=== PATIENT | male | born 1985 | race Caucasian/White ===

== ENCOUNTER 2024-11-15 01:38 | Emergency (ER) | payer SELFPAY ==
[2024-11-15 01:40] VITALS: BP 129/83; PULSE 84; TEMP 36.4; O2SAT 94; BMI 26.6
[2024-11-15 06:01] LABS: Basophils Percent Auto 0.4 % (0.2-2.0); Eosinophils Absolute Auto 0.2 10^3/uL (0.0-0.7); Eosinophils Percent Auto 2.2 % (0.9-7.0); Hematocrit 42.5 % (42.0-54.0); Hemoglobin 14.5 g/dL (14.0-18.0); Immature Granulocytes Abs Auto 0.01 10^3/uL (0.00-0.03); Immature Granulocytes Pct Auto 0.1 % (0.0-0.5); Lymphocytes Absolute Auto 1.9 10^3/uL (1.2-3.8); Lymphocytes Percent Auto 23.2 % (20.5-60.0); Mean Corpuscular HGB Conc 34.1 g/dL (29.9-35.2); Mean Corpuscular Hemoglobin 32.6 pg (25.9-34.0); Mean Corpuscular Volume 95.5 fL (80.0-94.0); Mean Platelet Volume 10.1 fL (9.5-13.5); Monocytes Absolute Auto 0.7 10^3/uL (0.3-0.8); Monocytes Percent Auto 7.9 % (1.7-12.0); Neutrophils Absolute Auto 5.5 10^3/uL (1.4-6.5); Neutrophils Percent Auto 66.2 % (43.0-75.0); Platelet Count 236 10^3/uL (150-450); Red Blood Count 4.45 10^6/uL (4.70-6.10); Red Cell Distribution Width 12.5 % (11.0-15.0); White Blood Count 8.3 10^3/uL (4.0-11.0)
[2024-11-15 06:03] LABS: Alanine Aminotransferase 87 U/L (16-63); Albumin Globulin Ratio 1.1; Albumin Level 3.5 g/dL (3.4-5.0); Alkaline Phosphatase 93 U/L (46-116); Anion Gap 13.2; Aspartate Amino Transferase 32 U/L (15-37); BUN Creatinine Ratio 23.6; Bilirubin Total 0.3 mg/dL (0.2-1.0); Calcium 8.7 mg/dL (8.5-10.1); Carbon Dioxide 27.7 mmol/L (21.0-32.0); Chloride 107 mmol/L (98-107); Estimated GFR (African America >60 (>=60 mL/min/1.73m^2); Estimated GFR (Non-African Ame >60 (>=60 mL/min/1.73m^2); Globulin 3.2 g/dL; Glucose 149 mg/dL (74-106); Potassium 3.9 mmol/L (3.5-5.1); Sodium 144 mmol/L (136-145); Total Protein 6.7 g/dL (6.4-8.2)
[2024-11-15 06:23] LABS: Bilirubin Urine NEGATIVE (NEGATIVE); Blood Urine LARGE (NEGATIVE); Clarity Urine SLIGHTLY CLOUDY (CLEAR); Color Urine YELLOW (YELLOW); Glucose Urine UA NEGATIVE (NEGATIVE); Ketones Urine TRACE mg/dL (NEGATIVE); Leukocyte Esterase Urine NEGATIVE (NEGATIVE); Nitrite Urine NEGATIVE (NEGATIVE); Protein Urine NEGATIVE (NEG/TRACE); Specific Gravity Urine >=1.030 (1.005-1.025); Urobilinogen Urine 0.2 EU/dL (0.2-1.0)
[2024-11-15 06:38] LABS: RBC Urine >100 #/HPF (0-2); WBC Urine 0-2 #/HPF (NONE SEEN)
[2024-11-15 06:39] LABS: Bacteria Urine NONE SEEN #/HPF (NONE SEEN); Cast Seen? SEEN #/LPF (NONE SEEN); Crystals Seen? None Seen #/HPF (None Seen); Hyaline Casts Urine FEW; Mucus Urine LARGE (NONE SEEN); Squamous Epithelial Cell Urine NONE SEEN #/LPF (NONE/RARE)
== END 2024-11-15 05:15 | disposition home or self-care (01) ==
LOC: ER 01:43
PROVIDERS: Emergency Provider Emergency Medicine
DX: K80.50 Calculus of bile duct without cholangitis or cholecystitis without obstruction (principal); R10.13 Epigastric pain; K29.70 Gastritis, unspecified, without bleeding
CPT/HCPCS: 36415; 80053; 81001; 83690; 85025; 96374; 96375; 99284

== ENCOUNTER 2025-05-17 13:41 | Emergency (ER) | payer SELFPAY ==
--- OUTSIDE RECORDS SUMMARY | 2025-05-17 13:47 | XMS_ITS | CCD ---
Author Organization [facility] Care Team Providers Care Animal Behaviorist Name Role Phone REQUEST, DR NONE LISTED Primary Care UnavailMARIUSZ Vicente Admitting Unavailable YVONNE MARKS Consulting Unavailable MARIUSZ CARRASQUILLO Attending Unavailable MARIUSZ CARRASQUILLO Consulting Unavailable LUZ MARIA, DR TREVINO Attending Unavailable LUZ MARIA, DR TREVINO Consulting Unavailable LUZ MARIA, DR TREVINO Admitting Unavailable REQUEST, DR MORRIS LISTED Primary Care Donna GROVES, DR JOCELYN Ortiz Consulting Unavailable Nadia Loera MD Primary Care Provider [phone] NADIA LOERA Attending Unavailable Allergies Allergy Classification Reported Allergen(s) Allergy Type Date of Onset Reaction(s) Facility (2 sources) Loratadine Allergy to substance 11-24-2024 [facility] Medications Current Medications Medication Drug Class(es) Dates Sig (Normalized) Sig (Original) omeprazole 40 mg delayed release oral capsule (4 sources) Proton Pump Inhibitor Start: 06-04-2023 End: 11-24-2024 take 1 capsule by mouth once daily omeprazole (PriLOSEC) [address] capsule Indications: Gastroesophageal reflux disease, unspecified whether esophagitis present Take 1 capsule (40 mg) by mouth Daily 100 capsule 11/24/2024 Active Problems Active Problems Problem Classification Problem Date Documented Date Episodic/Chronic Biliary tract disease (4 sources) Calculus of bile duct without cholangitis or cholecystitis without obstruction; Translations: [CALC BD NO CHOLANG/CHOLCYST NO OBST] Onset: 12-05-2022 Episodic Esophageal disorders (6 sources) Gastroesophageal reflux disease; Translations: [Gastro-esophageal reflux disease without esophagitis] Onset: 11-24-2024 11-24-2024 Chronic Substance-related disorders (2 sources) Smoker; Translations: [Nicotine dependence, unspecified, uncomplicated] Onset: 11-24-2024 11-24-2024 Chronic Past or Other Problems Problem Classification Problem Date Documented Da te Episodic/Chronic Immunizations and screening for infectious disease (1 source) Encounter for immunization; Translations: [ENCOUNTER FOR IMMUNIZATION] Onset: 04-18-2022 Episodic Inflammation; infection of eye (except that caused by tuberculosis or sexually transmitteddisease) (1 source) Unspecified conjunctivitis; Translations: [UNSPECIFIED CONJUNCTIVITIS] Onset: 04-18-2022 Episodic Other injuries and conditions due to external causes (3 sources) Foreign body on external eye, part unspecified, right eye, initial encounter; Translations: [FB EXT EYE PART UNS RT EYE INIT ENC] Onset: 04-16-2022 Episodic Results Test Name Value Interpretation Reference Range Facil ity Provider Letteron 12-05-2024 Provider Letter Provider Letter December 05, 2024 BALTAZAR VALLE [address] [place] [id number] : 1985 Dear Baltazar, We have been trying to reach you with no success. It is important that you return our call regarding your referral from Dr. Loera to see Dr. Starkey. Please call the office to schedule a appointment upon receiving this letter. Also, at the time of your call, please provide us with your current information. Thank you for your prompt attention to this matter. Sincerely, [facility] [phone] Normal [facility] NM HEPATOBILIARY SCAN W EFon 12-05-2022 NM HEPATOBILIARY SCAN W EF EXAMINATION: NM HEPATOBILIARY SCAN W EF HISTORY: Biliary colic ; right upper quadrant pain for 3 months increasing in severity, nausea and vomiting COMPARISON: No relevant comparison available. TECHNIQUE: Radionuclide hepatobiliary imaging was performed after intravenous injection of 5.1 mCi Tc-99m PENNY derivative with sequential acquisitions every 1 minute for one hour. Hepatobiliary imaging with gallbladder ejection fraction analysis was then performed with sequential imaging every 1 minute for 60 minutes following ingestion of 8 oz. Ensure Plus. FINDINGS: LIVER: Normal, prompt and uniform radiotracer uptake and clearing. BILIARY DUCTS: Normal radioisotopic biliary excretion. GALLBLADDER: Normal with no evidence of cystic duct obstruction. INTESTINE: Normal with no evidence of common biliary ductal obstruction. EJECTION FRACTION: 97 % within 60 minutes. (Normal EF > 38%). OTHER: Negative. IMPRESSION: 1. Normal nuclear medicine HIDA scan. Electronically authenticated by: JOCELYN Greenberg: 2022-12-05 09:34 Normal [facility] XR FOREIGN BODY EYEon 2021 XR FOREIGN BODY EYE EXAM: XR FOREIGN BODY EYE HISTORY: Foreign body right eye pain COMPARISON: None. TECHNIQUE: AP and lateral radiographs of the orbits. FINDINGS: No radiopaque foreign body identified in the region of the orbits. No fracture. Leftward nasal septal deviation. The pneumatized portions of the skull appear clear IMPRESSION: No radiopaque foreign body identified. Electronically authenticated by: KANU DONAHUE Date: 2022-04-16 12:39 Normal [facility] Vital Signs Date Time Vital Sign Value Performing Clinician Faci lity 11-24-2024 13:49-0500 Body height 175.3 cm Nadia Loera MD Work Phone: [facility] 11-24-2024 13:49-0500 Body mass index (BMI) [Ratio] 27.76 kg/m2 Nadia Loera MD Work Phone: [facility] 11-24-2024 13:49-0500 Body weight 85.28 kg Nadia Loera MD Work Phone: [facility] 11-24-2024 13:49-0500 Diastolic blood pressure 80 mm[Hg] Nadia Loera MD Work Phone: [facility] 11-24-2024 13:49-0500 Heart rate 81 /min Nadia Loera MD Work Phone: [facility] 11-24-2024 13:49-0500 SaO2% (BldA) [Mass fraction] 98 % aNdia Loera MD Work Phone: [facility] 11-24-2024 13:49-0500 Systolic blood pressure 122 mm[Hg] Nadia Loera MD Work Phone: [facility] Encounters Encounter Date Encounter Type Care Provider Facility Start: 11-27-2024 ambulatory Facility: [facility] Start: 11-24-2024 End: 11-24-2024 ambulatory NADIA LOERA Not Available Start: 11-24-2024 End: 11-24-2024 Office outpatient visit 25 minutes Nadia Loera MD Work Phone: [facility] Comment on above: Gastroesophageal ref lux disease, unspecified whether esophagitis present Start: 12-05-2022 End: 12-06-[address] NAIDA LOERA Facility: Start: 04-16-2022 End: 04-16-2022 ambulatory NONE LISTED REQUEST Facility: Plan of Treatment Date Care Activity Detail Author Start: 07-06-2024 Influenza vaccination Influenza Vacc ine (#1) [facility] Immunizations Immunization Date Immunization Notes Care Provider Fa cility 04-16-2022 diphtheria, tetanus toxoids and pertussis vaccine Nadia Loera MD Work Phone: [facility] 03-02-2000 measles, mumps and rubella virus vaccine Nadia Loera MD Work Phone: [facility] 06-20-1991 diphtheria, tetanus toxoids and pertussis vaccine Ndaia Loera MD Work Phone: [facility] 06-20-1991 haemophilus influenz ae type b vaccine, conjugate unspecified formulation Nadia Loera MD Work Phone: [facility] 06-20-1991 trivalent poliovirus vaccine, live, oral Nadia Loera MD Work Phone: [facility] 08-21-1988 measles, mumps and rubella virus vaccine Nadia Loera MD Work Phone: [facility] 01-04-1987 diphtheria, tetanus toxoids and pertussis vaccine Nadia Loera MD Work Phone: [facility] 01-04-1987 trivalent poliovirus vaccine, live, oral Nadia Loera MD Work Phone: [facility] 1985 diphtheria, tetanus toxoids and pertussis vaccine Nadia Loera MD Work Phone: [facility] 1985 trivalent poliovirus vaccine, live, oral Nadia Loera MD Work Phone: [facility] 1985 diphtheria, tetanus toxoids and pertussis vaccine Nadia Loera MD Work Phone: [facility] 1985 trivalent poliovirus vaccine, live, oral Nadia Loera MD Work Phone: [facility] Payers Date Payer Category Payer Unknown [id number] 1985 Unknown [id number] 1985 Unknown [id number] 1958 Unknown [id number] Self-pay Social History Date Type Detail Facility Start: 11-24-2024 Tobacco smoking stat [facility] Never smoked tobacco [facility] Start: 11-24-2024 Tobacco use and exposure Smokeless t obacco non-user [facility] Start: 11-24-2024 History of Social function [facility] Start: 11-24-2024 Tobacco use panel [facility] Start: 1985 Sex assigned at Not on file [facility] History of Present illness Narrative 11-24-2024 Nadia Loera MD - 11/24/2024 2:00 PM David Loera MD - 11/24/2024 1:30 PM EST Note Date & Type Note Facility 11-24-2024 History of Presen t illness Narrative Associated Problem(s): Gastroesophageal reflux disease Was taking Ibuprofen 4 a day. Discontinue NSAIDs: Motrin, Ibuprofen, Naprosyn Extra Strength 2 every 6 hours Omeprazole could take twice a day GI specialist Images from the original note were not included. HPI Nephrolithiasis Additional comments: Pt has not been seen since November of 2022 Last edited by Melissa Saravia MA on 11/24/2024 7:37 AM. Subjective Patient ID: Baltazar Valle is a 39 y.o. male who presents for Nephrolithiasis (Pt has not been seen since November of 2022). Pt was in [place] two weeks ago pt went to ER due to having front and back pain , ultrasound and a CT they told him his kidney stone front hurt due to his kidney being swollen , pt was given pain meds Pt states if he drinks water he gets heartburn and also if he eats anything it will hurt also , and has had to go up three pants sizes Pt has had heartburn for the past two to three years , Was in [place]. Has had some pain in Rib cage. Can eat anything has pain RUQ. No Radiation. Diarrhea all the time HIDA scan was normal Current Outpatient Medications on File Prior to Visit Medication Sig Dispense Refill [DISCONTINUED] omeprazole (PriLOSEC) [address] capsule Take 1 capsule (40 mg) by mouth in the morning. 100 capsule 0 No current facility-administered medications on file prior to visit. I have reviewed and reconciled the history and medication list with the patient today. Allergies Allergen Reactions Loratadine Other Reaction(s): unknown Social History Tobacco Use Smoking status: Never Smokeless tobacco: Never Family History Problem Relation Name Age of Onset Hypertension Mother Past Medical History: Diagnosis Date History of abdominal hernia Past Surgical History: Procedure Laterality Date APPENDECTOMY HERNIA REPAIR Visit Vitals BP 122/80 Pulse 81 Ht 5' 9 Wt 188 lb SpO2 98% BMI 27.76 kg/m Smoking Status Never BSA 2.04 m Review of Systems Gastrointestinal: Positive for abdominal pain and diarrhea. Negative for blood in stool and constipation. Objective Physical Exam Vitals reviewed. Constitutional: Appearance: Normal appearance. HENT: Head: Normocephalic. Cardiovascular: Rate and Rhythm: Normal rate and regular rhythm. Pulses: Normal pulses. Pulmonary: Effort: Pulmonary effort is normal. Breath sounds: Normal breath sounds. Abdominal: Tenderness: There is abdominal tenderness. Neurological: General: No focal deficit present. Mental Status: He is alert and oriented to person, place, and time. Psychiatric: Mood and Affect: Mood normal. Assessment/Plan Problem List Items Addressed This Visit Gastroesophageal reflux disease Was taking Ibuprofen 4 a day. Discontinue NSAIDs: Motrin, Ibuprofen, Naprosyn Extra Strength 2 every 6 hours Omeprazole could take twice a day GI specialist Relevant Medications omeprazole (PriLOSEC) [address] capsule Other Relevant Orders Ambulatory referral to Gastroenterology No follow-ups on file. documented in this encounter [facility] Evaluation note Note Date & Type Note Facility Evaluation note Diagnosis Gastroesophageal reflux disease, unspecified whether esophagitis present documented in this encounter [facility] Summary Purpose Family History No Family History Records FoundNo Family History Records FoundNo Family History Records Found Advance Directives No Advanced Directives Records FoundNo Advanced Directives Records FoundNo Advanced Directives Records Found Additional Source Comments (unrecognized sect ion and content) No Status Records FoundNo Status Records FoundNo Status Records Found INFORMATION SOURCE (unrecogn ized section and content) DATE CREATED AUTHOR 12/06/2022 [facility] DATE CREATED AUTHOR AUTHOR'S ORGANIZ ATION 11/26/2024 [facility] EPIC DATE CREATED AUTHOR AUTHOR'S ORGANIZ ATION 12/07/2024 [facility] Reason for Visit (unrecogniz ed section and content) Reason Comments Nephrolithiasis Pt has not been seen since November of 2022 Care Teams (unrecognized sec tion and content) Animal Behaviorist Relationship Specialty Start Date End Date Nadia Loera MD [address] [facility] [address] [place] [address] PCP - General Family Medicine 03/13/23 FOR RECORDS PERTAINING TO PATIENTS WHO ARE OR HAVE BEEN ENROLLED IN A CHEMICAL DEPENDENCY/SUBSTANCEABUSE PROGRAM, SOME INFORMATION MAY BE OMITTED. This clinical summary was aggregated from multiple sources. Caution should be exercised in using it in the provision of clinical care. This summary normalizes information from multiple sources, and as a consequence, information in this document may materially change the coding, format and clinical context of patient data. In addition, data may be omitted in some cases. CLINICAL DECISIONS SHOULD BE BASED ON THE PRIMARY CLINICAL RECORDS. [facility]. provides no warranty or guarantee of the accuracy or completeness of information in this document.
[2025-05-17 13:52] VITALS: BP 126/88; PULSE 99; TEMP 36.8; O2SAT 95; BMI 22.2
--- NOTE | 2025-05-17 14:11 | CT_ITS ---
[place] [id number] Patient Name: MARGIE MAZARIEGOS MRN: [id number] date: 1985 Sex: M Assigned Patient Location: ER Current Patient Location: ER Accession/Order Number: [id number] Exam Date: 05/17/2025 15:00 Report Date: 05/17/2025 15:03 At the request of: MARIELA SOLORIO NP Procedure: CT abdomen pelvis wo con CT abdomen pelvis wo con 05/17/2025 2:45 PM SIGNS AND SYMPTOMS: ^L flank/ ab pain, hx stones TECHNIQUE: Multidetector ct axial images of the abdomen and pelvis were obtained without IV contrast. Multiplanar reformats were performed and reviewed to further define anatomy and possible pathology. CT was performed with one or more of the following dose reduction techniques: Automated exposure control, adjustment of the mA and/or kV according to patient size, or use of iterative reconstruction technique. COMPARISON: None. FINDINGS: Lower Chest: Within normal limits. ABDOMEN: Liver: Within normal limits. Bile Ducts: Normal caliber. Gallbladder: No calcified gallstones. Normal caliber wall. Pancreas: Within normal limits. Spleen: Within normal limits. Adrenals: Within normal limits. Kidneys: There is mild left-sided hydronephrosis. There is a 4 mm stone in the left renal collecting system. Pelvis: Reproductive Organs: No pelvic masses. Ureters: There is a 4 mm stone in the mid left ureter. Bladder: Within normal limits. Bowel: Normal caliber. There is a normal appendix in the right lower quad. Mesenteric Lymph Nodes: No enlarged mesenteric lymph nodes. Peritoneum: No ascites or free air, no fluid collection. Vessels: within normal limits Retroperitoneum: Within normal limits. Abdominal Wall: Within normal limits. Bones: Within normal limits. CT/CT abdomen pelvis wo con IMPRESSION: There is a 4 mm stone in the mid left ureter. There is mild left-sided hydronephrosis. There is a 4 mm stone in the left renal collecting system. Impression dictated by: Baltazar Colbert M.D. 05/17/2025 3:03 PM Dictation Location: [place] [address] Electronically authenticated by: [id number] Y Date: 05/17/2025 15:03
[2025-05-17] MEDS: KETOROLAC TROMETHAMINE 30 MG/ML VIAL IVP (14:26)
[2025-05-17] MEDS: 0.9 % SODIUM CHLORIDE 1,000 ML 1000 ML IV (14:26)
--- NOTE | 2025-05-17 14:42 | ED_ITS ---
HPI HPI - General Adult General Chief complaint: Abdominal Pain Stated complaint: SHARP PAINS L SIDE BACK Time Seen by Provider: 05/17/25 14:06 Source: patient Mode of arrival: walk-in History of Present Illness HPI narrative: Patient is a 39-year-old male who presents to the emergency department today for evaluation of concerns for left-sided flank and abdominal pain. He endorses he woke up this morning with colicky like pain that is becoming more persistent with associated symptoms of nausea without vomiting. He states he has a history of kidney stones from 2 to 3 months ago but never followed up with urology for this. He denies any fevers. No urinary symptoms. He mentions he took some Toradol with no improvement for Sullivan this morning. Related Data Previous Rx's ?Medication ?Instructions ?Recorded cephalexin 500 mg capsule 500 mg PO BID 14 days #28 ca ps 05/17/25 hydrocodone 5 mg-acetaminophen 325 1 tab PO Q6H PRN pa in #7 tabs 05/17/25 mg tablet ondansetron 4 mg disintegrating 4 mg PO Q8H PRN nausea and 05/17/25 tablet vomiting 4 days #10 tabs tamsulosin 0.4 mg capsule (Flomax) 0.4 mg PO DAILY #14 caps 05/17/25 Allergies Allergy/AdvReac Type Severity Reaction Status Date / Time No Known Drug Allergies Allergy Verified 11/15/24 01:47 Opioid HPI Opioid Management Most Recent Opioid Data: Last Pain Scale 4 Today, 15:41 Review of Systems ROS Status of ROS 10 or more systems reviewed and unremark able except as noted in history and below PFSH PFSH Social History Little interest or pleasure in doing things: not at all Feeling down, depressed, or hopeless: not at all Exam Narrative Exam Narrative: Constituational: Awake/ alert, no apparent distress, well hydrated HENMT: normocephalic, external ears normal, moist oral mucous membranes and oropharynx normal Eyes: EOMI and conjunctivae normal Neck: ROM intact Chest: inspection of chest normal Respiratory: Normal respiratory effort, clear to auscultation bilaterally Cardio: regular rate and regular rhythm GI: + Mild discomfort to LLQ/LUQ without rebound, abdomen is otherwise soft to palpation and non-tender Back:+ Mild L left CVA discomfort, otherwise normal inspection of back MSK: ROM intact, +NVI Skin: no rashes or petechiae Neuro: no focal deficits Psych: mental status grossly normal Constitutional Vital Signs, click to edit/add: Last Vital Signs Temp 98.2 F 05/17/25 13:52 Pulse 99 H 05/17/25 13:52 Resp 18 05/17/25 13:52 BP 126/88 05/17/25 13:52 Pulse Ox 95 05/17/25 13:52 O2 Del Method Room Air 05/17/25 13:52 Course Vital Signs Vital signs: Vital Signs Temperature 98.2 F 05/17/25 13:52 Pulse Rate 99 H 05/17/25 13:52 Respiratory Rate 18 05/17/25 13:52 Blood Pressure 126/88 05/17/25 13:52 Pulse Oximetry 95 05/17/25 13:52 Oxygen Delivery Method Room Air 05/17/25 13:52 Temperature 98.2 F 05/17/25 13:52 Pulse Rate 99 H 05/17/25 13:52 Respiratory Rate 18 05/17/25 13:52 Blood Pressure 126/88 05/17/25 13:52 Pulse Oximetry 95 05/17/25 13:52 Oxygen Delivery Method Room Air 05/17/25 13:52 Medical Decision Making MDM Narrative Medical decision making narrative: The patient is a nontoxic and well-appearing 39-year-old male who presented to the emergency department today for evaluation concerns for colicky left flank and abdominal pain. Initial examination vital signs overall stable. No acute abdominal findings on exam. There is elevated concern for kidney stone and subsequent CT imaging obtained that is noted for 4mm stone in both mid ureter and collecting system. Labs otherwise stable as below. UA is positive for UTI as evidenced by nitrites, leukocytes, and bacteria and occult blood. Roland duarte received supportive measures of IV fluids, Zofran, Toradol, and subsequently morphine. On reevaluation he reports an improvement in condition. Discussed the above findings with the patient including recommendations for supportive care of UTI and kidney stones. Will discharge home with [place] for severe pain. In addition to Zofran for any nausea or vomiting, tamsulosin, and cephalexin for UTI. Placed for urology for follow-up. Discussed signs and symptoms of any worsening condition and when to consider reevaluation by the emergency department. Patient verbalized an understanding of this and is agreeable with the plan to be discharged home. Medical Records Medical records reviewed: Yes I reviewed the patient's medical records Lab Data Lab results reviewed: Yes I reviewed the patient's lab results Labs: Lab Results 05/17/25 05/17/25 Range/Units 14:00 14:22 WBC 9.0 (4.0-11.0) 10^3/uL RBC 4.80 (4.70-6.10) 10^6/uL Hgb 15.7 (14.0-18.0) g/dL Hct 44.4 (42.0-54.0) % MCV 92.5 (80.0-94.0) fL MCH 32.7 (25.9-34.0) pg MCHC 35.4 H (29.9-35.2) g/dL RDW 12.5 (11.0-15.0) % Plt Count 210 (150-450) 10^3/uL MPV 10.2 (9.5-13.5) fL Neut % (Auto) 69.4 (43.0-75.0) % Lymph % (Auto) 20.4 L (20.5-60.0) % Phelps % (Auto) 8.9 (1.7-12.0) % Eos % (Auto) 0.8 L (0.9-7.0) % Baso % (Auto) 0.2 (0.2-2.0) % Neut # (Auto) 6.2 (1.4-6.5) 10^3/uL Lymph # (Auto) 1.8 (1.2-3.8) 10^3/uL Phelps # (Auto) 0.8 (0.3-0.8) 10^3/uL Eos # (Auto) 0.1 (0.0-0.7) 10^3/uL Baso # (Auto) 0.0 (0.0-0.1) 10^3/uL Abs Immat Gran (auto) 0.03 (0.00-0.03) 10^3/uL Imm/Tot Granulo (auto) 0.3 (0.0-0.5) % Sodium 142 (136-145) mmol/L Potassium 4.4 (3.5-5.1) mmol/L Chloride 106 (98-107) mmol/L Carbon Dioxide 21.4 (21.0-32.0) mmol/L Anion Gap 19.0 BUN 26.0 H (7.0-18.0) mg/dL Creatinine 1.15 (0.70-1.30) mg/dL Est GFR ( Amer) >60 (>=60 mL/min/1.73m^2) Est GFR (Non-Af Amer) >60 (>=60 mL/min/1.73m^2) BUN/Creatinine Ratio 22.6 Glucose 104 (74-106) mg/dL Calcium 9.1 (8.5-10.1) mg/dL Total Bilirubin 0.5 (0.2-1.0) mg/dL AST 27 (15-37) U/L ALT 47 (16-63) U/L Alkaline Phosphatase 105 (46-116) U/L Total Protein 7.0 (6.4-8.2) g/dL Albumin 3.8 (3.4-5.0) g/dL Globulin 3.2 g/dL Albumin/Globulin Ratio 1.2 Lipase 31.0 (16.0-77.0) U/L Urine Color Dk. brown (YELLOW) Urine Clarity Clear (CLEAR) Urine pH 5.5 (5.0-9.0) Ur Specific Hinton 1.025 (1.005-1.025) Urine Protein >=300 A (NEG/TRACE) mg/dL Urine Glucose (UA) Negative (NEGATIVE) mg/dL Urine Ketones Trace A (NEGATIVE) mg/dL Urine Occult Blood Large A (NEGATIVE) Urine Nitrite Positive A (NEGATIVE) Urine Bilirubin Small A (NEGATIVE) Urine Urobilinogen 1.0 (0.2-1.0) EU/dL Ur Leukocyte Esterase Trace A (NEGATIVE) Imaging Data CT scan - abdomen: Attestation: I have reviewed the pertinent imaging results. Radiologist's impression: ITS Impressions Abdomen/Pelvis CT 05/17/25 14:11 IMPRESSION: There is a 4 mm stone in the mid left ureter. There is mild left-sided hydronephrosis. There is a 4 mm stone in the left renal collecting system. Impression dictated by: Baltazar Colbert M.D. 05/17/2025 3:03 PM Dictation Location: [place] [address] Electronically authenticated by: [id number] Y Date: 05/17/2025 15:03 Discharge Plan Discharge Chief Complaint: Abdominal Pain Clinical Impression: Calculus of kidney, Acute UTI Patient Disposition: Home, Self-Care Prescriptions / Home Meds: New hydrocodone-acetaminophen 5-325 mg tablet 1 tab PO Q6H PRN (Reason: pain) Qty: 7 0RF tamsulosin [Flomax] 0.4 mg capsule 0.4 mg PO DAILY Qty: 14 0RF cephalexin 500 mg capsule 500 mg PO BID 14 Days Qty: 28 0RF ondansetron 4 mg tablet,disintegrating 4 mg PO Q8H PRN (Reason: nausea and vomiting) 4 Days Qty: 10 0RF Print Language: Greenlandic Instructions: Kidney Stones (ED), Low Oxalate Diet (ED), How to Strain Your Urine (ED) Additional Instructions: Alternate Tylenol and ibuprofen as needed for any pain. May take [place] as needed for severe pain. Take tamsulosin as prescribed -> this will increase frequency of urination to help you pass the stone. Take antibiotics as prescribed for UTI. Stay hydrated and drink plenty of fluids. You need to follow-up with urology for reevaluation of your kidney stones as discussed. May return to the ER with any new or worsening symptoms/concerns. Referrals: Physician,Non-Staff, [Primary Care Provider] - 1 week Phil Pineda MD [Physician, Urology] - 1 week
[2025-05-17 14:52] LABS: Hematocrit 44.4 % (42.0-54.0); Hemoglobin 15.7 g/dL (14.0-18.0); Immature Granulocytes Abs Auto 0.03 10^3/uL (0.00-0.03); Immature Granulocytes Pct Auto 0.3 % (0.0-0.5); Lymphocytes Absolute Auto 1.8 10^3/uL (1.2-3.8); Mean Corpuscular HGB Conc 35.4 g/dL (29.9-35.2); Mean Corpuscular Hemoglobin 32.7 pg (25.9-34.0); Mean Corpuscular Volume 92.5 fL (80.0-94.0); Platelet Count 210 10^3/uL (150-450); Red Blood Count 4.80 10^6/uL (4.70-6.10); White Blood Count 9.0 10^3/uL (4.0-11.0)
[2025-05-17 15:08] LABS: Alanine Aminotransferase 47 U/L (16-63); Albumin Globulin Ratio 1.2; Albumin Level 3.8 g/dL (3.4-5.0); Alkaline Phosphatase 105 U/L (46-116); Anion Gap 19.0; Aspartate Amino Transferase 27 U/L (15-37); Blood Urea Nitrogen 26.0 mg/dL (7.0-18.0); Calcium 9.1 mg/dL (8.5-10.1); Carbon Dioxide 21.4 mmol/L (21.0-32.0); Chloride 106 mmol/L (98-107); Estimated GFR (African America >60 (>=60 mL/min/1.73m^2); Estimated GFR (Non-African Ame >60 (>=60 mL/min/1.73m^2); Globulin 3.2 g/dL; Glucose 104 mg/dL (74-106); Lipase 31.0 U/L (16.0-77.0); Potassium 4.4 mmol/L (3.5-5.1); Sodium 142 mmol/L (136-145); Total Protein 7.0 g/dL (6.4-8.2)
[2025-05-17] MEDS: MORPHINE SULFATE 2 MG/ML SYRINGE IV (15:41)
[2025-05-17 15:53] LABS: Glucose Urine UA NEGATIVE (NEGATIVE)
[2025-05-17 16:00] LABS: Cast Seen? NONE SEEN #/LPF (NONE SEEN); Crystals Seen? None Seen #/HPF (None Seen); Urine Culture Indicated YES-FRMC
== END 2025-05-17 16:15 | disposition home or self-care (01) ==
PROVIDERS: Nurse Practitioner; Emergency Provider Emergency Medicine
DX: N13.6 Pyonephrosis (principal); Z87.442 Personal history of urinary calculi
CPT/HCPCS: 36415; 74176; 80053; 81001; 83690; 85025; 87086; 96374; 96375; 99285; J1885; J2270; J2405

== ENCOUNTER 2025-05-23 08:26 | Outpatient (OUT) | payer SELFPAY ==
--- OUTSIDE RECORDS SUMMARY | 2025-05-23 08:30 | XMS_ITS | CCD ---
Author Organization [facility] Care Team Providers Care Ship Cleaner Name Role Phone REQUEST, DR NONE LISTED Primary Care UnavailMARIUSZ Vicente Admitting Unavailable YVONNE MARKS Consulting Unavailable MARIUSZ CARRASQUILLO Attending Unavailable MARIUSZ CARRASQUILLO Consulting Unavailable LUZ MARIA, DR TREVINO Attending Unavailable LUZ MARIA, DR TREVINO Consulting Unavailable LUZ MARIA, DR TREVINO Admitting Unavailable REQUEST, NONE LISTED Primary Care Donna GROVES, DR JOCELYN Ortiz Consulting Unavailable Nadia Loera MD Primary Care Provider NADIA LOERA Attending Unavailable Phil PAYAN Attending Unavailable Allergies Allergy Classification Reported Allergen(s) Allergy Type Date of Onset Reaction(s) Facility (2 sources) Loratadine Allergy to substance 11-24-2024 [facility] Healthcare Medications Current Medications Medication Drug Class(es) [...] [place] [address] [place] [id number] : 1985 Dear Baltazar, We have been [...] your prompt attention to this matter. Sincerely, [facility] [phone] Normal [facility] [place] HEPATOBILIARY SCAN W EFon 12-05-2022 NM [...] medicine HIDA scan. Electronically authenticated by: JOCELYN GROVES Date: 2022-12-05 09:34 Normal [facility] XR FOREIGN BODY EYEon 2021 XR FOREIGN [...] by: KANU DONAHUE Date: 2022-04-16 12:39 Normal [facility] Vital Signs Date Time Vital Sign Value Performing Clinician Faci lity 11-24-2024 13:49-0500 Body height 175.3 cm Nadia Loera MD Work Phone: [facility] 11-24-2024 13:49-0500 Body mass index (BMI) [Ratio] 27.76 kg/m2 Nadia Loera MD Work Phone: [facility] 11-24-2024 13:49-0500 Body weight 85.28 kg Nadia Loera MD Work Phone: [facility] 11-24-2024 13:49-0500 Diastolic blood pressure 80 mm[Hg] Nadia Loera MD Work Phone: [facility] 11-24-2024 13:49-0500 Heart rate 81 /min Nadia Loera MD Work Phone: [facility] 11-24-2024 13:49-0500 SaO2% (BldA) [Mass fraction] 98 % Nadia Loera MD Work Phone: [facility] 11-24-2024 13:49-0500 Systolic blood pressure 122 mm[Hg] Nadia Leora MD Work Phone: [facility] Encounters Encounter Date Encounter Type Care Provider Facility Start: 06-08-2025 ambulatory Phil Shell ty:[facility] Start: 05-19-2025 ambulatory Phil PAYAN Facility :[facility] Start: 11-27-2024 ambulatory Phil PAYAN Facility :[facility] Start: 11-24-2024 End: 11-24-2024 ambulatory NADIA LOERA Not Available Start: 11-24-2024 End: 11-24-2024 Office outpatient visit 25 minutes Nadia Loera MD Work Phone: [facility] Comment on above: Gastroesophageal ref lux disease, unspecified whether esophagitis present Start: 12-05-2022 End: 12-06-[address] NADIA LOERA Facility: Start: 04-16-2022 End: 04-16-2022 ambulatory NONE LISTED REQUEST Facility: Plan of Treatment Date Care Activity Detail Author Start: 07-06-2024 Influenza vaccination Influenza Vacc ine (#1) [facility] Immunizations Immunization Date Immunization Notes Care Provider Fa cili 04-16-2022 diphtheria, tetanus toxoids and pertussis vaccine Nadia Loera MD Work Phone: [facility] 03-02-2000 measles, mumps and rubella virus vaccine Nadia Loera MD Work Phone: [facility] 06-20-1991 diphtheria, tetanus toxoids and pertussis vaccine Nadia Loera MD Work Phone: [facility] 06-20-1991 haemophilus influenz ae type b vaccine, conjugate unspecified formulation Nadia Loera MD Work Phone: [facility] 06-20-1991 trivalent poliovirus vaccine, live, oral Nadia Loera MD Work Phone: [facility] 08-21-1988 measles, mumps and rubella virus vaccine Nadia Loera MD Work Phone: [facility] 01-04-1987 diphtheria, tetanus toxoids and pertussis vaccine Nadia Loera MD Work Phone: [facility] 01-04-1987 trivalent poliovirus vaccine, live, oral Nadia Loera MD Work Phone: [facility] 1985 diphtheria, tetanus toxoids and pertussis vaccine Nadia Loera MD Work Phone: [facility] 1985 trivalent poliovirus vaccine, live, oral Nadia Loera MD Work Phone: [facility] 1985 diphtheria, tetanus toxoids and pertussis vaccine Nadia Loera MD Work Phone: [facility] 1985 trivalent poliovirus vaccine, live, oral Nadia Loera MD Work Phone: [facility] Payers Date Payer Category Payer Unknown [id number] [id number] 1985 Unknown [id number] [id number] 1985 Unknown [id number] [id number] 1985 Unknown [id number] [id number] 1985 Unknown [id number] 1958 Unknown [id number] Self-pay Social History Date Type Detail Facility Start: 11-24-2024 Tobacco smoking stat [facility] Never smoked tobacco [facility] Start: 11-24-2024 Tobacco use and exposure Smokeless t obacco non-user [facility] Start: 11-24-2024 History of Social function [facility] Start: 11-24-2024 Tobacco use panel [facility] Start: 1985 Sex assigned at Not on file [facility] History of Present illness Narrative 11-24-2024 [...] since November of 2022). Pt was in [place] two weeks ago pt went to ER [...] two to three years , Was in [place]. Has had some pain in Rib cage. [...] and content) DATE CREATED AUTHOR 12/06/2022 [facility] DATE CREATED AUTHOR AUTHOR'S ORGANIZ ATION 11/26/2024 [facility] EPIC DATE CREATED AUTHOR AUTHOR'S ORGANIZ ATION 05/23/2025 [facility] Reason for Visit (unrecogniz ed section and content) Reason Comments Nephrolithiasis Pt has not been seen since November of 2022 Care Teams (unrecognized sec tion and content) Ship Cleaner Relationship Specialty Start Date End Date Nadia Loera MD [address] [place] [address] [address] [place] [address] PCP - General Family Medicine 03/13/23 FOR [...] BE BASED ON THE PRIMARY CLINICAL RECORDS. [facility]. provides no warranty or guarantee of the accuracy or completeness of information in this document.
--- NOTE | 2025-05-23 08:35 | US_ITS ---
The [address] [address] Patient Name: MARGIE MAZARIEGOS MRN: [id number] date: 1985 Sex: M Assigned Patient Location: [place] Current Patient Location: [place] Accession/Order Number: [id number] Exam Date: 05/23/2025 09:20 Report Date: 05/23/2025 09:23 At the request of: KRISTY PAYAN MD Procedure: US renal BI BILATERAL RENAL AND BLADDER ULTRASOUND CLINICAL HISTORY: KIDNEY STONE N20.0 COMPARISON: 05/17/2025 Estimation of renal size is approximately 11.3 x 4.5 x 4.0 cm on the right and 10.4 x 5.3 x 5.2 cm on the left. No contour deforming mass, or hydronephrosis. Echogenic foci within the midpole left kidney noted 4 x 4 x 2 mm. The urinary bladder is partially distended with a volume of 749 cc . No shadowing stone or focal lesion. US/US renal BI IMPRESSION: NO OBSTRUCTIVE UROPATHY. 4 MM LEFT INTERPOLAR CALCULUS. Impression dictated by: Andrea Vazquez M.D. 05/23/2025 9:23 AM Dictation Location: [place] [address] Electronically authenticated by: [id number] Y Date: 05/23/2025 09:23
--- NOTE | 2025-05-23 08:35 | XR_ITS ---
The [place] [id number] Patient Name: MARGIE MAZARIEGOS MRN: [id number] date: 1985 Sex: M Assigned Patient Location: US Current Patient Location: US Accession/Order Number: [id number] Exam Date: 05/23/2025 09:24 Report Date: 05/23/2025 09:26 At the request of: KRISTY PAYAN MD Procedure: XR abdomen 1V Single view abdomen INDICATION: Kidney stone COMPARISON: CT abdomen pelvis 05/17/2025 FINDINGS: No radiopaque calculi identified overlying the kidney shadows or psoas muscles. There is bowel gas which projects over the left kidney which does obscure evaluation. Right pelvic phleboliths. Otherwise nonspecific bowel gas pattern. XR/XR abdomen 1V IMPRESSION: No radiopaque calculi identified on this examination. Please see renal ultrasound report.. Impression dictated by: Andrea Vazquez M.D. 05/23/2025 9:26 AM Dictation Location: [place] [address] Electronically authenticated by: [id number] Y Date: 05/23/2025 09:26
== END 2025-05-23 08:27 | disposition home or self-care (01) ==
LOC: US 08:28
PROVIDERS: Visit Provider Urology
DX: N20.0 Calculus of kidney (principal)
CPT/HCPCS: 74018; 76775

== ENCOUNTER 2025-06-10 06:32 | Outpatient (OUT) | payer SELFPAY ==
--- OUTSIDE RECORDS SUMMARY | 2025-06-08 09:37 | XMS_ITS ---
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 A 24-hour urine specimen is a lab test that requires you to collect all of your urine for an entire day. This is sometimes called a timed urine test. It can provide more information than a single urine sample. There are many reasons to have this test. Your health care provider may order the test to check for or monitor the following conditions: ??? High blood pressure. ??? Kidney disease. ??? Kidney stones. ??? Urinary tract infections. ??? . ??? Diabetes. How do I prepare for this test? You may be asked to follow a special diet during or before the collection period. Follow any instructions from your health care provider. If no special instructions are given, you may eat and drink normally. ??? Take qpoz-vby-xpsyemr and prescription medicines only as told by your health care provider. ??? Let your health care provider know about any medicines that you are taking, including retr-fzg-crrarju medicines, vitamins, herbs, and supplements. ??? Choose a collection day when you can be at home or when you have a place to store the urine. All urine must be collected during the testing period. How do I do a 24-hour urine collection? When you get up in the morning, urinate in the toilet and flush. Write down the time. This will be your start time on the day of collection and your end time on the next morning. ??? From the start time on, all of your urine should be kept in the collection jug that you received from the lab. ??? If the jug that is given to you already has liquid in it, that is okay. Do not throw out the liquid or rinse out the jug. ??? Urinate into a specimen container, such as a urinal or gibbs that sits over the toilet. Pour the urine from the container into the collection jug. Be careful not to spill any of the urine. Use the equipment provided by the lab. ??? Do not let any toilet paper or stool (feces) get into the jug. This will contaminate the sample. ??? Stop collecting your urine 24 hours after you started. Collect the last specimen as close as possible to the end of the 24-hour period. ??? Keep the jug cool in an ice chest or keep it in the refrigerator during collection. ??? When the 24-hour collection is complete, take the jug to the lab as soon as possible. Keep the jug cool in an ice chest while you are bringing it to the lab. What do the results mean? Talk with your health care provider about what your results mean. Questions to ask your health care provider Ask your health care provider, or the department that is doing the test: ??? When will my results be ready? How will I get my results? What are my treatment options? What other tests do I need? What are my next steps? Summary ??? A 24-hour urine specimen is a lab test that requires you to collect all of your urine for an entire day. ??? When you get up in the morning, urinate in the toilet and flush. Write down the time. For the next 24 hours, collect all of your urine in the collection jug that you received from the lab. ??? Keep the jug cool while collecting the urine and while bringing it back to the lab. ??? Take the jug of urine back to the lab as soon as possible after the collection period has ended. This information is not intended to replace advice given to you by your health care provider. Make sure you discuss any questions you have with your health care provider. Document Revised: 04/28/2022 Document Reviewed: 04/28/2022 [employer] Patient Education ? 2023 [employer]Kidney Stones Kidney stones are solid, rock-like deposits that form inside of the kidneys. The kidneys are a pair of organs that make urine. A kidney stone may form in a kidney and move into other parts of the urinary tract, including the tubes that connect the kidneys to the bladder (ureters), the bladder, and the tube that carries urine out of the body (urethra). As the stone moves through these areas, it can cause intense pain and block the flow of urine. Kidney stones are created when high levels of certain minerals are found in the urine. The stones are usually passed out of the body through urination, but in some cases, medical treatment may be needed to remove them. What are the causes? Kidney stones may be caused by: ??? A condition in which certain glands produce too much parathyroid hormone (primary hyperparathyroidism), which causes too much calcium buildup in the blood. ??? A buildup of uric acid crystals in the bladder (hyperuricosuria). Uric acid is a chemical that the body produces when you eat certain foods. It usually leaves the body in the urine. ??? Narrowing (stricture) of one or both of the ureters. ??? A kidney blockage that is present at (congenital obstruction). ??? Past surgery on the kidney or the ureters. What increases the risk? The following factors may make you more likely to develop this condition: ??? Having had a kidney stone in the past. ??? Having a family history of kidney stones. ??? Not drinking enough water. ??? Eating a diet that is high in protein, salt (sodium), or sugar. ??? Being overweight or obese. What are the signs or symptoms? Symptoms of a kidney stone may include: ??? Pain in the side of the abdomen, right below the ribs (flank pain). Pain usually spreads (radiates) to the groin. ??? Needing to urinate often or urgently. ??? Painful urination. ??? Blood in the urine (hematuria). ??? Nausea. ??? Vomiting. ??? Fever and chills. How is this diagnosed? This condition may be diagnosed based on: ??? Your symptoms and medical history. ??? A physical exam. ??? Blood tests. ??? Urine tests. These may be done before and after the stone passes out of your body through urination. ??? Imaging tests, such as a CT scan, abdominal X-ray, or ultrasound. ??? A procedure to examine the inside of the bladder (cystoscopy). How is this treated? Treatment for kidney stones depends on the size, location, and makeup of the stones. Kidney stones will often pass out of the body through urination. You may need to: ??? Increase your fluid intake to help pass the stone. In some cases, you may be given fluids through an IV and may need to be monitored in the hospital. ??? Take medicine for pain. ??? Make changes in your diet to help prevent kidney stones from coming back. Sometimes, procedures are needed to remove a kidney stone. This may involve: ??? A procedure to break up kidney stones using: ? A focused beam of light (laser therapy). ? Shock waves (extracorporeal shock wave lithotripsy). ??? Surgery to remove kidney stones. This may be needed if you have severe pain or have stones that block your urinary tract. Follow these instructions at home: Medicines ??? Take mowo-rfx-fizpqxi and prescription medicines only as told by your health care provider. ??? Ask your health care provider if the medicine prescribed to you requires you to avoid driving or using heavy machinery. Eating and drinking ??? Drink enough fluid to keep your urine pale yellow. You may be instructed to drink at least 8?10 glasses of water each day. This will help you pass the kidney stone. ??? If directed, change your diet. This may include: ? Limiting how much sodium you eat. ? Eating more fruits and vegetables. ? Limiting how much animal protein you eat. Animal proteins include red meat, poultry, fish, and eggs. ? Eating a normal amount of calcium (1,000?1,300 mg per day). ??? Follow instructions from your health care provider about eating or drinking restrictions. General instructions ??? Collect urine samples as told by your health care provider. You may need to collect a urine sample: ? 24 hours after you pass the stone. ? 8?12 weeks after you pass the kidney stone, and every 6?12 months after that. ??? Strain your urine every time you urinate, for as long as directed. Use the strainer that your health care provider recommends. ??? Do not throw out the kidney stone after passing it. Keep the stone so it can be tested by your health care provider. Testing the makeup of your kidney stone may help prevent you from getting kidney stones in the future. ??? Keep all follow-up visits. You may need follow-up X-rays or ultrasounds to make sure that your stone has passed. How is this prevented? To prevent another kidney stone: ??? Drink enough fluid to keep your urine pale yellow. This is the best way to prevent kidney stones. ??? Eat a healthy diet. Follow recommendations from your health care provider about foods to avoid. Recommendations vary depending on the type of kidney stone that you have. You may be instructed to eat a low-protein diet. ??? Maintain a healthy weight. Where to find more information ??? National Kidney Foundation (NKF): www.kidney.org ??? [employer] (UCF): www.urologyhealth.org Contact a health care provider if: ??? You have pain that gets worse or does not get better with medicine. Get help right away if: ??? You have a fever or chills. ??? You develop severe pain. ??? You develop new abdominal pain. ??? You faint. ??? You are unable to urinate. Summary ??? Kidney stones are solid, rock-like deposits that form inside of the kidneys. ??? Kidney stones can cause nausea, vomiting, blood in the urine, abdominal pain, and the urge to urinate often. ??? Treatment for kidney stones depends on the size, location, and makeup of the stones. Kidney stones will often pass out of the body through urination. ??? Kidney stones can be prevented by drinking enough fluids, eating a healthy diet, and maintaining a healthy weight. This information is not intended to replace advice given to you by your health care provider. Make sure you discuss any questions you have with your health care provider. Document Revised: 01/31/2023 Document Reviewed: 01/31/2023 Elsevier Patient Education ? 2023 [employer]. UROLOGY OFFICE/CLINIC NOTE Observed: 02/2025 9:37 AM Status: F Source: [facility] Urology Office/Clinic Note Chief Complaint new pt for hospitl follow up from kidney stone HPI Staff 39 yr old here for 3 week f/u [facility] ER w/4mm stone in Ureter. PRW would like ANNAMARIA and KUB done prior to appt. pt denies pain/burning denies visible blood denies flank pain pt unable to give urine sample today Pt states that his kidney stones problems started winter with several trips to the ER. Pt reports that he is unable to pass the stone History of Present Illness Tests reviewed: reviewed ER notes & labs & CT, ANNAMARIA, KUB, UA I have reviewed the previous health record information and history for this patient from external providers. I have reviewed and verified the staff HPI to be accurate for this encounter. Review of Systems PHQ Score Initial Depression Screen Score: 0 SCORE ROS - Provider Constitutional: denies weight loss, denies hot flashes. Eyes: denies eye problems. Gastrointestinal: denies nausea, denies vomiting. Cardiovascular: denies chest pain or angina. Integumentary: no dryness Musculoskeletal: denies musculoskeletal symptoms. ENMT: denies otolaryngeal symptoms. Respiratory: no shortness of breath. Heme/Lymph: denies easy bleeding tendency, denies easy bruising tendency. Psychiatric: no confusion, no anxiety. Genitourinary: See HPI. Physical Exam Vitals & Measurements HR: 68(Peripheral) RR: 18 BP: 128/78 HT: 69 in HT: 174 cm WT: 83.8 kg WT: 184.747 lb BMI: 27.68 General Appearance: alert, no distress, well nourished, well developed male. Assessment/Plan Baltazar is a 39 yo male new pt here for ER f/u due to 4 mm L ureteral stone. Pt accompanied by adult female today. 1. Ureteral stone (N20.1: Calculus of ureter) [facility] ER 05/17/25 due to L flank pain. Renal fxn - BUN 26, Cr 1.15, GFR >60 CT AP wo con - Mild L hydro with 4 mm stone in mid L ureter. ANNAMARIA/KUB 05/23/25 [facility] - No ureteral stones or hydro noted. UA today shows trace-intact blood. Denies noticing stone passage. Reviewed imaging results. May have uric acid stones, urine pH 6.5 and no stones seen on x-ray. Given ureteral stone was not visualized on recent imaging, likely passed stone but there is a small chance he has not. Denies changes in urination. Has experienced sweating despite a cool environment a few times over the last 6-7 mos. Drinking liters of water daily, has increased fluid intaek recently. Used to only void q6-8hrs. Last pain episode 5 days ago. Discussed metabolic workup to help determine the etiology of kidney stone formation, including genetic predisposition, dietary factors, and different metabolism in patients. -Increase fluid intake -Timed voids q3hrs during the waking hours -Pt to call or go to the ER if they were to experience fever, shaking, chills, uncontrolled nausea, vomiting, or pain. -F/u in 3 mos w/ KUB and met w/u Ordered: E&M of New Patient Low 30-44 Min 77827 Urnls Dip Stick Auto w/o Microscopy POC 17632 2. Kidney stone (N20.0: Calculus of kidney) Hx of many stones, typically left-sided. No prior metabolic workup. CT AP wo con 05/17/25 [facility] - 4 mm stone in L renal collecting system. KUB 05/23/25 [facility] - No stones noted. ANNAMARIA 05/23/25 [facility] - 4 x 4 x 2 mm echogenic foci within midpole L kidney. -See #1 Ordered: E&M of New Patient Low 30-44 Min 80623 Urnls Dip Stick Auto w/o Microscopy POC 19749 XR Abdomen 1 View 3. Flank pain (R10.9: Unspecified abdominal pain) States he has had bilateral back pain >1 yr. Did not think it was related to stone originally. However pain worsened so he went ER in [place] 11/2024. Has not been able to obtain records from there. Thinks he passed stone from R side. Last had pain on L side 5 days ago. -See #1 Ordered: E&M of New Patient Low 30-44 Min 25829 Urnls Dip Stick Auto w/o Microscopy POC 98138 4. Infrequent urination (R39.198: Other difficulties with micturition) has been waiting 6-8 hours historically. He needs to do timed voids q3 while awake. Follow-up With When Contact Information ORA GOLDMAN, Phil Ortiz, URL [facility] [address], [place] [address]- [phone] Additional Instructions: 3 mos w/ KUB and met w/u Patient Education 24-Hour Urine Collection Kidney Stones I, Ly Flower, personally scribed for Dr. Payan on 06/08/2025 10:32:16. . Documentation recorded by the scribe, Ly Flower, accurately reflects the services(s) I performed and decisions made by me. Authenticated by Dr. Payan on 06/08/2025 10:40:01. Problem List/Past Medical History Ongoing Flank pain Gastroesophageal reflux disease HTN (hypertension) Kidney stone Smoker Ureteral stone Historical Abdominal hernia Medications Flomax 0.4 mg Cap, 0.4 mg= 1 cap(s), Oral, Daily omeprazole 40 mg Cap-DR Allergies loratadine (unknown) Social History Alcohol Never., 06/07/2025 Substance Abuse Never., 06/07/2025 Tobacco Refused tobacco status screen Tobacco Use:. Never Smokeless Tobacco Use:., 06/08/2025 Family History Hypertension: Mother. Immunizations Vaccine Date Status measles/mumps/rubella virus vaccine 03/02/2000 Recorded Hib, unspecified formulation 06/20/1991 Recorded measles/mumps/rubella virus vaccine 08/21/1988 Recorded Lab Results Ambulatory Point of Care Results Bilirubin Urine Dipstick: Negative (06/08/25 10:23:00) Blood Urine Dipstick: Trace-intact (06/08/25 10:23:00) Glucose Urine Dipstick: Negative (06/08/25 10:23:00) Ketones Urine Dipstick: Negative (06/08/25 10:23:00) Leukocytes Urine Dipstick: Negative (06/08/25 10:23:00) Nitrite Urine Dipstick: Negative (06/08/25 10:23:00) Protein Urine Dipstick: Negative (06/08/25 10:23:00) Specific [place] Urine Dipstick: 1.010 (06/08/25 10:23:00) Urine Appearance Urine Dipstick: Clear (06/08/25 10:23:00) Urine Color Urine Dipstick: Yellow (06/08/25 10:23:00) Urobilinogen Urine Dipstick: Normal 0.2-1 EU/dl (06/08/25 10:23:00) pH Urine Dipstick: 6.5 (06/08/25 10:23:00) Result Comment: Electronical ly Signed By: Phil PAYAN MD\.br\Date and Time Signed: 06/08/25 10:40 EDT\.br\Electronically Co-Signed By: Ly Flower\.br\Date and Time Co-Signed: 06/08/25 10:32 EDT AMBULATORY VISIT SUMMARY Observed: 06/08 9:37 AM Status: F Source: [facility] Ambulatory Visit Summary BALTAZAR MAZARIEGOS :1985 Visit Date:06/08/2025 Ambulatory Visit Instructions Your Diagnosis Ureteral stone Kidney stone Flank pain Infrequent urination Tests Performed XR Abdomen 1 View -- Results Pending -- Please visit your patient portal for your results or contact your primary care physician. Your Care Team Attending Physician - Phil PAYAN MD Primary Care Physician - BELINDA LOERA MD This Is Your Medications List Contact prescribing physician if questions or concerns omeprazole (omeprazole 40 mg Cap-DR) tamsulosin (Flomax 0.4 mg Cap) Discharge Vitals Heart Rate (Peripheral) 68 Respiratory Rate 18 Blood Pressure 128/78 Height 174 cm Height 69 in Weight 83.8 kg Weight 184.747 lb BMI 27.68 What to do next Scheduled Follow-Up Appointments Sunday 9:45 AM EST With: Phil PAYAN MD Where: [facility] [address] [address]- You Need to Schedule the Following Appointments Follow Up with Phil PAYAN MD, URL When: Where: [facility] [address] [place] [address]- [phone] Medications What How Much When Instructions Unchanged omeprazole (omeprazole 40 mg Cap-DR) 90 EA, 0 Refill(s), TAKE 1 CAPSULE BY MOUTH DAILY Contact prescribing physician if questions or concerns Unchanged tamsulosin (Flomax 0.4 mg Cap) 1 Capsules By Mouth Every day Contact prescribing physician if questions or concerns Allergies loratadine (unknown) Problems Ongoing - Any problem that you are currently receiving treatment for. Flank pain Gastroesophageal reflux disease HTN (hypertension) Infrequent urination Kidney stone Smoker Ureteral stone Historical - Any problem that you are no longer receiving treatment for. Abdominal hernia Patient Survey You may receive a survey via text or e-mail asking about your office visit. Please share your experience with us by completing your survey. We appreciate your feedback and thank you for choosing us for your care. Education Materials 24-Hour Urine Collection Why am I having this test? A 24-hour urine specimen is a lab test that requires you to collect all of your urine for an entire day. This is sometimes called a timed urine test. It can provide more information than a single urine sample. There are many reasons to have this test. Your health care provider may order the test to check for or monitor the following conditions: ??? High blood pressure. ??? Kidney disease. ??? Kidney stones. ??? Urinary tract infections. ??? . ??? Diabetes. How do I prepare for this test? You may be asked to follow a special diet during or before the collection period. Follow any instructions from your health care provider. If no special instructions are given, you may eat and drink normally. ??? Take bphb-hqe-hgfawvu and prescription medicines only as told by your health care provider. ??? Let your health care provider know about any medicines that you are taking, including rlyp-goe-ttalxso medicines, vitamins, herbs, and supplements. ??? Choose a collection day when you can be at home or when you have a place to store the urine. All urine must be collected during the testing period. How do I do a 24-hour urine collection? When you get up in the morning, urinate in the toilet and flush. Write down the time. This will be your start time on the day of collection and your end time on the next morning. ??? From the start time on, all of your urine should be kept in the collection jug that you received from the lab. ??? If the jug that is given to you already has liquid in it, that is okay. Do not throw out the liquid or rinse out the jug. ??? Urinate into a specimen container, such as a urinal or gibbs that sits over the toilet. Pour the urine from the container into the collection jug. Be careful not to spill any of the urine. Use the equipment provided by the lab. ??? Do not let any toilet paper or stool (feces) get into the jug. This will contaminate the sample. ??? Stop collecting your urine 24 hours after you started. Collect the last specimen as close as possible to the end of the 24-hour period. ??? Keep the jug cool in an ice chest or keep it in the refrigerator during collection. ??? When the 24-hour collection is complete, take the jug to the lab as soon as possible. Keep the jug cool in an ice chest while you are bringing it to the lab. What do the results mean? Talk with your health care provider about what your results mean. Questions to ask your health care provider Ask your health care provider, or the department that is doing the test: ??? When will my results be ready? How will I get my results? What are my treatment options? What other tests do I need? What are my next steps? Summary ??? A 24-hour urine specimen is a lab test that requires you to collect all of your urine for an entire day. ??? When you get up in the morning, urinate in the toilet and flush. Write down the time. For the next 24 hours, collect all of your urine in the collection jug that you received from the lab. ??? Keep the jug cool while collecting the urine and while bringing it back to the lab. ??? Take the jug of urine back to the lab as soon as possible after the collection period has ended. This information is not intended to replace advice given to you by your health care provider. Make sure you discuss any questions you have with your health care provider. Document Revised: 04/28/2022 Document Reviewed: 04/28/2022 [employer] Patient Education ??? 2023 [employer]. Kidney Stones Kidney stones are solid, rock-like deposits that form inside of the kidneys. The kidneys are a pair of organs that make urine. A kidney stone may form in a kidney and move into other parts of the urinary tract, including the tubes that connect the kidneys to the bladder (ureters), the bladder, and the tube that carries urine out of the body (urethra). As the stone moves through these areas, it can cause intense pain and block the flow of urine. Kidney stones are created when high levels of certain minerals are found in the urine. The stones are usually passed out of the body through urination, but in some cases, medical treatment may be needed to remove them. What are the causes? Kidney stones may be caused by: ??? A condition in which certain glands produce too much parathyroid hormone (primary hyperparathyroidism), which causes too much calcium buildup in the blood. ??? A buildup of uric acid crystals in the bladder (hyperuricosuria). Uric acid is a chemical that the body produces when you eat certain foods. It usually leaves the body in the urine. ??? Narrowing (stricture) of one or both of the ureters. ??? A kidney blockage that is present at (congenital obstruction). ??? Past surgery on the kidney or the ureters. What increases the risk? The following factors may make you more likely to develop this condition: ??? Having had a kidney stone in the past. ??? Having a family history of kidney stones. ??? Not drinking enough water. ??? Eating a diet that is high in protein, salt (sodium), or sugar. ??? Being overweight or obese. What are the signs or symptoms? Symptoms of a kidney stone may include: ??? Pain in the side of the abdomen, right below the ribs (flank pain). Pain usually spreads (radiates) to the groin. ??? Needing to urinate often or urgently. ??? Painful urination. ??? Blood in the urine (hematuria). ??? Nausea. ??? Vomiting. ??? Fever and chills. How is this diagnosed? This condition may be diagnosed based on: ??? Your symptoms and medical history. ??? A physical exam. ??? Blood tests. ??? Urine tests. These may be done before and after the stone passes out of your body through urination. ??? Imaging tests, such as a CT scan, abdominal X-ray, or ultrasound. ??? A procedure to examine the inside of the bladder (cystoscopy). How is this treated? Treatment for kidney stones depends on the size, location, and makeup of the stones. Kidney stones will often pass out of the body through urination. You may need to: ??? Increase your fluid intake to help pass the stone. In some cases, you may be given fluids through an IV and may need to be monitored in the hospital. ??? Take medicine for pain. ??? Make changes in your diet to help prevent kidney stones from coming back. Sometimes, procedures are needed to remove a kidney stone. This may involve: ??? A procedure to break up kidney stones using: ? A focused beam of light (laser therapy). ? Shock waves (extracorporeal shock wave lithotripsy). ??? Surgery to remove kidney stones. This may be needed if you have severe pain or have stones that block your urinary tract. Follow these instructions at home: Medicines ??? Take [id number] and prescription medicines only as told by your health care provider. ??? Ask your health care provider if the medicine prescribed to you requires you to avoid driving or using heavy machinery. Eating and drinking ??? Drink enough fluid to keep your urine pale yellow. You may be instructed to drink at least 8???10 glasses of water each day. This will help you pass the kidney stone. ??? If directed, change your diet. This may include: ? Limiting how much sodium you eat. ? Eating more fruits and vegetables. ? Limiting how much animal protein you eat. Animal proteins include red meat, poultry, fish, and eggs. ? Eating a normal amount of calcium (1,000???1,300 mg per day). ??? Follow instructions from your health care provider about eating or drinking restrictions. General instructions ??? Collect urine samples as told by your health care provider. You may need to collect a urine sample: ? 24 hours after you pass the stone. ? 8???12 weeks after you pass the kidney stone, and every 6???12 months after that. ??? Strain your urine every time you urinate, for as long as directed. Use the strainer that your health care provider recommends. ??? Do not throw out the kidney stone after passing it. Keep the stone so it can be tested by your health care provider. Testing the makeup of your kidney stone may help prevent you from getting kidney stones in the future. ??? Keep all follow-up visits. You may need follow-up X-rays or ultrasounds to make sure that your stone has passed. How is this prevented? To prevent another kidney stone: ??? Drink enough fluid to keep your urine pale yellow. This is the best way to prevent kidney stones. ??? Eat a healthy diet. Follow recommendations from your health care provider about foods to avoid. Recommendations vary depending on the type of kidney stone that you have. You may be instructed to eat a low-protein diet. ??? Maintain a healthy weight. Where to find more information ??? National Kidney Foundation (NKF): www.kidney.org ??? [employer] (F): www.urologyhealth.org Contact a health care provider if: ??? You have pain that gets worse or does not get better with medicine. Get help right away if: ??? You have a fever or chills. ??? You develop severe pain. ??? You develop new abdominal pain. ??? You faint. ??? You are unable to urinate. Summary ??? Kidney stones are solid, rock-like deposits that form inside of the kidneys. ??? Kidney stones can cause nausea, vomiting, blood in the urine, abdominal pain, and the urge to urinate often. ??? Treatment for kidney stones depends on the size, location, and makeup of the stones. Kidney stones will often pass out of the body through urination. ??? Kidney stones can be prevented by drinking enough fluids, eating a healthy diet, and maintaining a healthy weight. This information is not intended to replace advice given to you by your health care provider. Make sure you discuss any questions you have with your health care provider. Document Revised: 01/31/2023 Document Reviewed: 01/31/2023 [employer] Patient Education ??? 2023 [facility] Patient Portal You may access all of your results and other medical record information on our secure patient portal. If you are not signed up for this yet, please contact [employer] at [phone] to get signed up today. Language Information Language assistance services are available as needed. PROVIDER LETTER Observed: 12/05/2024 9:18 AM Status: F Source: [facility] Provider Letter December 05, 2024 BALTAZAR MAZARIEGOS [address] [place] [id number] : 1985 Dear Baltazar, We have been [...] your prompt attention to this matter. Sincerely, [facility] [phone] ALLERGIES DATE TYPE / CODE NAME / CODE REACTION SEVERITY SOURCE [id number](SNOMED CT) loratadine Unknown [facility] ENCOUNTERS ADMIT/DISCHARGE ACCOUNT NUMBER ADMITTING ENCOUNTER CLASS LOCATION SOURCE 06/08/2025 [id number] [place] Exam [address] [facility] 05/19/2025 [id number] Ambulatory [place] Maria D [facility] 11/27/2024 [id number] Ambulatory [facility] [id number] Amb[facility] Building:[facility] EPIC PAYERS ENCOUNTER GUARANTOR PAYER SUBSCRIBER SOURCE 06/08/2025 BALTAZAR KOENIGSDOB: [address] STTel: ~~[phone]) Primary Insurance:SELF PAYPolicy Number: Effective Date:1799-11-04 BALTAZAR Lou [facility] 05/19/2025 BALTAZAR MORGANIMESDOB: [address]: ~[phone]) Primary Insurance:SELF PAYPolicy Number: Effective Date:1799-11-04 [facility] 11/27/[facility]24 BALTAZAR MORGANIMESDOB: [address]: ~[phone]) Primary Insurance:SELF PAYPolicy Number: Effective Date:1799-11-04 [facility] [place]
--- OUTSIDE RECORDS SUMMARY | 2025-06-10 06:34 | XMS_ITS | Clinical Summary ---
Author Organization [facility] tem Address [facility] [place]-[id number] [address] [place] [address] Care Team Providers Care Plate Filler Name Role Phone Nadia Mendoza MD Primary Care Provider [phone] Allergies No known active allergies Medications omeprazole (PriLOSEC) 20 mg capsule Take 1 capsule (20 mg total) by mouth in the morning. Active erythromycin (ILOTYCIN) ophthalmic ointment Administer 1.25 cm (0.5 inches total) to both eyes nightly. 3.5 g Active Social History Tobacco Use Types Packs/Day Years Used Date Smoking Tobacco: Every Day Cigarettes Smokeless Tobacco: Never Tobacco Cessation:Ready to Q uit: Not Asked; Counseling Given: Not Answered Alcohol Use Standard Drinks/Week Comments Never 0 (1 standard drink = 0.6 oz pur e alcohol) Childcare Answer Date Recorded Childcare Unknown 04/16/2019 Employment Answer Date Recorded Employment Unknown 04/16/2019 Hunger Screening Answer Date Recorded Within the past 12 months we worried whether our food would run out before we got money to buy more. Never True 10/09/2023 Within the past 12 months th e food we bought just didn't last and we didn't have money to get more. Never True 10/09/2023 Sex and Gender Information Value Date Recorded Sex Assigned at Not on file Legal Sex Male 12:02 PM EDT Gender Identity Not on file Sexual Orientation Not on file Last Filed Vital Signs Vital Sign Reading Time Taken Comments Blood Pressure 118/75 10/09/2023 8:30 AM EST Pulse 66 10/09/2023 8:02 AM EST Temperature 36.7 C (98 F) 10/09/2023 8:02 AM EST Respiratory Rate 20 11/20/2022 10:40 PM EST Oxygen Saturation 96% 10/09/2023 8:30 AM EST Inhaled Oxygen Concentration - - Weight 80.1 kg (176 lb 9.6 oz) 10/09/2023 8:02 A M EST Height 175.3 cm (5' 9 ) 10/09/2023 8:02 AM EST Body Mass Index 26.08 10/09/2023 8:02 AM EST Plan of Treatment Health Maintenance Due Date Last Done Comments Depression Screening 1998 Adult BMI Screening 10/09/2024 10/09/2023 Tobacco Screening 10/09/2024 10/09/2023 Influenza Vaccine 07/06/2025 DTaP,Tdap and Td Vaccines (6 - Tdap) 04/16/2032 04/16/2022, 06/20/1991, 01/04/1987, Additional history exists Medical Devices Not on file Insurance ANTH Care Teams Plate Filler Relationship Specialty Start Date End Date Nadia Mendoza MD [address] [place], [place] [phone] PCP - General Family Medicine 10/09/23
[2025-06-10 07:06] LABS: Blood Urea Nitrogen 14.0 mg/dL (7.0-18.0); Calcium 8.6 mg/dL (8.5-10.1); Carbon Dioxide 26.7 mmol/L (21.0-32.0); Chloride 105 mmol/L (98-107); Estimated GFR (African America >60 (>=60 mL/min/1.73m^2); Estimated GFR (Non-African Ame >60 (>=60 mL/min/1.73m^2); Sodium 141 mmol/L (136-145); Uric Acid 4.6 mg/dL (3.5-7.2)
[2025-06-10 09:42] LABS: Calcium 24 Hour Urine 388.6 mg/24hr (100.0-300.0); Creatinine 24 Hour Urine 2571.72 mg/24 hr (1000.0-2000.00); Total Volume 24 Hour Urine 2900 mL/24hr
[2025-06-11 13:08] LABS: Magnesium, U 7.0 mg/dL (Not Estab.); Magnesium,Urine 24hr 203.0 mg/24 hr (12.0-293.0); Phosphorus, Urine 38.4 mg/dL (Not Estab.); Phosphorus,Urine 24h 1114 mg/24 hr (390-1425)
[2025-06-11 16:09] LABS: Uric Acid, Urine 25.2 mg/dL (Not Estab.); Uric Acid,Urine 24hr 730.8 mg/24 hr (197.2-1078.7)
[2025-06-12 08:08] LABS: Citric Acid, U, 24hr 502 mg/24 hr (320-1240); Citric Acid, Urine 173 mg/L (Undefined)
[2025-06-12 16:39] LABS: BOX Test Date Sent 8/6/25; BOX Test Reference Lab CLEVELAND CLINIC; BOX Test Result 8/8/25; BOX Test Sent Out OXALATE, 24 HR URINE
== END 2025-06-10 06:33 | disposition home or self-care (01) ==
LOC: LAB 06:32
PROVIDERS: Visit Provider Urology
DX: N20.0 Calculus of kidney (principal)
CPT/HCPCS: 36415; 82310; 82340; 82374; 82435; 82507; 82565; 82570; 83735; 83945; 83970; 84100; 84105; 84295; 84300; 84520; 84550; 84560